=== PATIENT | male | born 1990 | race African-American/Black ===

== ENCOUNTER 2017-07-28 19:14 | Emergency (ER) | payer OTHER ==
[2017-07-28 19:30] VITALS: BP 122/76; PULSE 81; RESP 18; TEMP 97.5
[2017-07-28] MEDS ORDERED: PROPARACAINE 0.5% OPHTH DROPS 15 ML BTL BOTH EYES STA (19:57)
--- NOTE | 2017-07-28 20:24 | ED ---
General Adult HPI - General Chief complaint: Eye Problems Stated complaint: Eye Injury Time Seen by Provider: 07/28/17 19:56 Source: patient, RN notes reviewed Mode of arrival: ambulatory Limitations: no limitations - History of Present Illness Initial comments: 27-year-old male presents to the emergency department for a chief complaint of left eye pain. Patient states he was working out in the yard varying a line when the tool came back and found moderate into his eye. He states it will also may have hit his eye. He is not sure when his tetanus was last given. Patient states he has rinsed his eye out twice since then.One time he rinsed it with water and one time he rinsed it with Visine. Patient denies wearing contacts. Patient states his face is covered with moderate after the incident and he believes mother got into his eye. Patient states his eye feels scratched and is sensitive to light. Patient has no pain with movement of the eye. Patient has no ecchymosis around the eye. Patient has no other complaints at this time. - Related Data Home Medications Medication Instructions Recorded Confirmed Ibuprofen [Motrin] 400 mg PO Q6HR PRN 08/05/15 08/05/15 Previous Rx's Medication Instructions Recorded Azithromycin [Zithromax Tri-Dipesh] 500 mg PO DAILY #3 tab 08/05/15 Erythromycin Ophth Oint [Romycin 1 applic LEFT EYE QID 5 Days gm 07/28/17 Ophth Oint] Allergies Allergy/AdvReac Type Severity Reaction Status Date / Time No Known Allergies Allergy Verified 07/28/17 19:29 Review of Systems ROS Statement: Those systems with pertinent positive or pertinent negative responses have been documented in the HPI. ROS Other: All systems not noted in ROS Statement are negative. Past Medical History Past Medical History: No Reported History History of Any Multi-Drug Resistant Organisms: MRSA Date of last positivie culture/infection: 2007/MRSA MDRO Source:: Right hand Past Surgical History: Hernia Repair Past Psychological History: No Psychological Hx Reported Smoking Status: Former smoker Past Alcohol Use History: None Reported Past Drug Use History: None Reported General Exam Limitations: no limitations Head exam: Present: atraumatic, normocephalic, normal inspection Eye exam: Present: PERRL, EOMI, conjunctival injection (Patient's left eye appears erythematous.), other (Patient was numbed in the left eye with proparacaine and fluorescein stain with Wood's lamp was used to visualize corneal abrasions. This demonstrated 0.5cm mild cornea abrasion at 4:00 on the left eye. There is also a small abrasion at 9:00. Lids were flipped and infected for foreign bodies. No foreign bodies were found. No rust rings evident in the eye.). Absent: scleral icterus, periorbital swelling Pupils: Present: normal accommodation Course Vital Signs 07/28/17 19:26 Temperature 97.5 F L Pulse Rate 81 Respiratory 18 Rate Blood Pressure 122/76 O2 Sat by Pulse 96 Oximetry Medical Decision Making - Medical Decision Making 27-year-old male presents the emergency department for chief complaint of left eye pain. Patient was working outside when his tool flung up and threw dirt in his eye. Patient states the tool may have also hit eye but he cannot be sure. Patient has no pain with movement of the eye. Patient states his eye feels scratched and is sensitive to light. Patient has no other visual changes. Patient was given a tetanus here in the emergency department. patient was numbed with proparacaine and fluorescein dye with Wood's lamp was used. Corneal abrasion at 4:00 and 9:00. No foreign bodies in the eye after inspection. Disposition Clinical Impression: Corneal abrasion, left Disposition: HOME SELF-CARE Condition: Good Instructions: Abrasion (ED) Additional Instructions: Please use erythromycin drops as directed. Please return to the emergency department if you have worsening symptoms or visual loss. Please follow-up with ophthalmology or primary care provider in one to 2 days. Prescriptions: Erythromycin Ophth Oint [Romycin Ophth Oint] 1 applic LEFT EYE QID 5 Days gm Referrals: None,Stated [Primary Care Provider] - 1-2 days Mike Gabriel MD [STAFF PHYSICIAN] - 1-2 days
[2017-07-28] MEDS ORDERED: DIPH,PERTUS(ACELL)TETVAC-LF 0.5 ML VIAL IM ONE (20:38)
== END 2017-07-28 21:03 | disposition home or self-care (01) ==
LOC: EC 19:14
DX: S05.02XA Injury of conjunctiva and corneal abrasion without foreign body, left eye, initial encounter (principal); Z86.14 Personal history of Methicillin resistant Staphylococcus aureus infection; Z87.891 Personal history of nicotine dependence; Z23 Encounter for immunization; W22.8XXA Striking against or struck by other objects, initial encounter
CPT/HCPCS: 90471; 90715; 99282

== ENCOUNTER 2018-11-15 13:46 | Emergency (ER) | payer OTHER ==
[2018-11-15 13:53] VITALS: BP 119/67; PULSE 78; RESP 18; TEMP 99.2
[2018-11-15] MEDS ORDERED: IBUPROFEN 600 MG TAB PO STA (14:34)
--- NOTE | 2018-11-15 14:34 | XR ---
EXAMINATION TYPE: XR ankle complete RT, XR foot complete RT DATE OF EXAM: 11/15/2018 CLINICAL HISTORY: Pain after fall injury. TECHNIQUE: Frontal, lateral and oblique images of the right ankle and foot are obtained. COMPARISON: None. FINDINGS: There is no acute fracture/dislocation evident in the right ankle. The ankle mortise appe ars within normal limits. The overlying soft tissue appears unremarkable. There is no acute fracture or dislocation evident in the right foot. Hallux valgus positioning first metatarsophalangeal joint. Flexion in the distal second through fifth toes is present. Overlying soft tissue is unremarkable. IMPRESSION: There is no acute fracture or dislocation in the right ankle or foot.
--- NOTE | 2018-11-15 14:55 | ED ---
General Adult HPI - General Chief complaint: Extremity Injury, Lower Stated complaint: Foot injury Time Seen by Provider: 11/15/18 14:14 Source: patient Mode of arrival: ambulatory Limitations: no limitations - History of Present Illness Initial comments: Patient is a 28-year-old male presents emergency Department with right foot pain. Patient reports he jumped over a fence and landed abruptly on his right foot causing him to roll. Patient reports that incident occurred 2 hours ago. Patient reports the pain is a 7 and throbbing. Patient reports the pain is exacerbated on palpation along the fifth metatarsal and mild midfoot pain. Patient also reports pain with plantar flexion but no dorsiflexion. Patient reports mild edema at the site of injury but no erythema or skin discoloration. Patient denies taking medication to alleviate the symptoms. Patient denies any numbness or tingling. - Related Data Home Medications Medication Instructions Recorded Confirmed No Known Home Medications 11/15/18 11/15/18 Allergies Allergy/AdvReac Type Severity Reaction Status Date / Time No Known Allergies Allergy Verified 11/15/18 13:53 Review of Systems ROS Statement: Those systems with pertinent positive or pertinent negative responses have been documented in the HPI. ROS Other: All systems not noted in ROS Statement are negative. Past Medical History Past Medical History: No Reported History History of Any Multi-Drug Resistant Organisms: MRSA Date of last positivie culture/infection: 2007/MRSA MDRO Source:: Right hand Past Surgical History: Hernia Repair Past Psychological History: No Psychological Hx Reported Smoking Status: Former smoker Past Alcohol Use History: None Reported Past Drug Use History: None Reported General Exam - General Exam Comments Initial Comments: General: Well-developed well-nourished distress HEENT: Normocephalic/atraumatic, PERLL, pharynx erythema, swallowing well, EAC no erythema, no exudates, TM clear, no cervical lymph nodes Neck: Supple, nontender, trachea midline Chest/Lungs: Normal respirations, no signs of respiratory distress clear to auscultation bilaterally no wheezes, rales, rhonchi Cardiac: Regular rate and rhythm, normal S1-S2, no murmurs rubs or gallops Abdomen/GI: Soft nontender, bowel sounds equal or quadrant x4, no guarding, no rebound no CVA tenderness Musculoskeletal: Tenderness with palpation along the right fifth metatarsal, mild midfoot tenderness, mild edema around the fifth metatarsal, +2 dorsalis pedis and posterior tibialis bilaterally. Skin: Warmth, no rashes or lesions, no cyanosis or diaphoresis Neurologic: AAO x 3, CN 2-12 intact, Psychiatric: Mood and affect normal, judgment normal Limitations: no limitations Course Vital Signs 11/15/18 13:50 Temperature 99.2 F Pulse Rate 78 Respiratory 18 Rate Blood Pressure 119/67 O2 Sat by Pulse 99 Oximetry Procedures - Orthopedic Splinting/Casting Injury #1 Side: right Lower Extremity Injury Location: foot Lower Extremity Immobilizer: Javier wrap Medical Decision Making - Medical Decision Making Patient is a 28-year-old male presents emergency Department with right foot pain. Patient was given ibuprofen for symptomatically relief. X-ray of the right foot and ankle is unremarkable. Javier wrap was applied in the right foot. Patient advised to alternate between Tylenol and ibuprofen for pain control. Patient advised to keep ice compresses and keep leg elevated to minimize swelling and pain. Patient advised to follow with orthopedics. Strict return parameters were thoroughly discussed the patient was understanding and agreeable. Case discussed with physician. Disposition Clinical Impression: Sprain of foot, right Disposition: HOME SELF-CARE Condition: Stable Instructions (If sedation given, give patient instructions): Foot Sprain (ED) Additional Instructions: Please follow with orthopedics. Alternate between Tylenol and ibuprofen for pain control. Keep leg elevated and apply ice compress to minimize swelling. Please return to emergency department if symptoms worsen. Is patient prescribed a controlled substance at d/c from ED?: No Referrals: None,Stated [Primary Care Provider] - 1-2 days Time of Disposition: 14:55
== END 2018-11-15 15:08 | disposition home or self-care (01) ==
LOC: EC 13:46
DX: S93.601A Unspecified sprain of right foot, initial encounter (principal); Z87.891 Personal history of nicotine dependence; X50.1XXA Overexertion from prolonged static or awkward postures, initial encounter; Y93.39 Activity, other involving climbing, rappelling and jumping off
CPT/HCPCS: 99283

== ENCOUNTER 2020-10-18 06:24 | Emergency (ER) | payer OTHER ==
[2020-10-18 06:29] VITALS: BP 132/80; PULSE 60; RESP 16; TEMP 97.9
[2020-10-18] MEDS ORDERED: LIDOCAINE (PF) 10 MG/ML 2 ML VIAL SQ STA (06:44)
[2020-10-18] MEDS ORDERED: BACITRACIN OINT 1 EACH PACKET TOPICAL ONE (07:10)
--- NOTE | 2020-10-18 07:17 | ED ---
Upper Extremity HPI - General Chief Complaint: Extremity Injury, Upper Stated Complaint: Fish Hook in Finger Time Seen by Provider: 10/18/20 06:34 Source: patient Mode of arrival: ambulatory Limitations: no limitations - History of Present Illness Initial Comments: 30-year-old male presents with fishhook to the right second digit that occurred just prior to arrival. Patient states he was unable to get the maurilio out. Patient thinks his tetanus is up-to-date. Patient denies any numbness or tingling but does have some discomfort where the needle is. Note trouble with movement of the finger. -: minutes(s) (30) Other Extremity Injury: Fingers: Right (2nd) Handedness: right Place: outdoors Improves With: immobilization Worsens With: movement of extremity Context: other (fish hook) - Related Data Previous Rx's Medication Instructions Recorded Cephalexin [Keflex] 500 mg PO Q8HR #30 cap 10/18/20 Allergies Allergy/AdvReac Type Severity Reaction Status Date / Time No Known Allergies Allergy Verified 10/18/20 06:25 Review of Systems ROS Statement: Those systems with pertinent positive or pertinent negative responses have been documented in the HPI. ROS Other: All systems not noted in ROS Statement are negative. Constitutional: Denies: fever, chills Skin: Reports: other (right 2nd fish hook) Neurological: Denies: numbness, paresthesias Past Medical History Past Medical History: No Reported History History of Any Multi-Drug Resistant Organisms: MRSA Date of last positivie culture/infection: 2007/MRSA MDRO Source:: Right hand Past Surgical History: Hernia Repair Past Psychological History: No Psychological Hx Reported Smoking Status: Never smoker Past Alcohol Use History: None Reported Past Drug Use History: None Reported General Exam Limitations: no limitations General appearance: alert Respiratory exam: Present: normal lung sounds bilaterally. Absent: respiratory distress, wheezes, rales, rhonchi, stridor Cardiovascular Exam: Present: regular rate, normal rhythm, normal heart sounds. Absent: systolic murmur, diastolic murmur, rubs, gallop, clicks Skin exam: Present: warm, dry, normal color. Absent: intact (fish hook, right 2nd , puncture wound), rash Course Vital Signs 10/18/20 06:26 Temperature 97.9 F Pulse Rate 60 Respiratory 16 Rate Blood Pressure 132/80 O2 Sat by Pulse 99 Oximetry Procedures - Forgein Body Removal Soft Tissue Consent Obtained: verbal consent Site: hand Anesthetic Used: lidocaine 1% Amount (mLs): 1 Foreign Body Suspected: Fish Hook Foreign Body Removed: yes Foreign Body Removal Technique: Other (Patient was prepped and draped appropriately Betadine was used to clean the area before 1 mL of 1% lidocaine was used. pushed maurilio throught other side and clipped, bacitracin and dressing. no complications, pt aurora it well) Patient Tolerated Procedure: well, no complications Medical Decision Making - Medical Decision Making Patient tolerated procedure well we'll cover with antibiotics. Patient believes his tetanus is up-to-date. Disposition Clinical Impression: Fish hook injury of finger Disposition: HOME SELF-CARE Condition: Good Instructions (If sedation given, give patient instructions): Soft Tissue Foreign Body (ED) Prescriptions: Cephalexin [Keflex] 500 mg PO Q8HR #30 cap Is patient prescribed a controlled substance at d/c from ED?: No When asked, does pt state using other controlled substances?: No Referrals: Austyn Mckeon MD [Primary Care Provider] - 1-2 days Time of Disposition: 07:17
[2020-10-18] MEDS ORDERED: TETANUS-DIPHTHERIA TOX (PF) 0.5 ML VIAL IM ONE (07:31)
[2020-10-18] MEDS ORDERED: DIPH,PERTUS(ACELL)TETVAC-LF 0.5 ML VIAL IM ONE (07:38)
== END 2020-10-18 07:44 | disposition home or self-care (01) ==
LOC: EC 06:24
DX: S60.450A Superficial foreign body of right index finger, initial encounter (principal); Z23 Encounter for immunization; W45.8XXA Other foreign body or object entering through skin, initial encounter
CPT/HCPCS: 90715; 90471; 99283; J2001

== ENCOUNTER 2020-11-10 08:43 | Emergency (ER) | payer OTHER ==
[2020-11-10 08:48] VITALS: BP 133/84; PULSE 74; RESP 18; TEMP 98.4
--- NOTE | 2020-11-10 09:24 | XR ---
EXAMINATION TYPE: XR chest 2V DATE OF EXAM: 11/10/2020 COMPARISON: NONE HISTORY: Cough and fever TECHNIQUE: Frontal and lateral views of the chest are obtained. FINDINGS: There is no focal air space opacity, pleural effusion, or pneumothorax seen. The cardiac silhouette size is within normal limits. The osseous structures are intact. IMPRESSION: No acute cardiopulmonary process.
--- NOTE | 2020-11-10 09:35 | ED ---
URI HPI - General Chief Complaint: Upper Respiratory Infection Stated Complaint: fever, vomiting Time Seen by Provider: 11/10/20 08:50 Source: patient Mode of arrival: ambulatory Limitations: no limitations - History of Present Illness Initial Comments: Patient is a 30-year-old male presenting to emergency Department with complaints of intermittent fevers over the past 4 days. He also been having cough, some mild shortness of breath when he starts coughing a lot. He states he been taking Tylenol for the fevers which does break. He has had the fall Covid vaccine over 3 months ago. He denies history of asthma, no COPD. Takes no medications. He denies any chest pains, no abdominal pain, no vomiting or diarrhea.. Does have some generalized bodyaches that have been intermittent as well. He states his appetite has been lower in the past few days, but very to intermittent nausea. He denies any abdominal surgeries in the past. He denies dysuria. He has no further complaints. - Related Data Previous Rx's Medication Instructions Recorded Cephalexin [Keflex] 500 mg PO Q8HR #30 cap 10/18/20 Albuterol Inhaler [Ventolin Hfa 1 puff INHALATION RT-QID PRN #1 11/10/20 Inhaler] puff Azithromycin [Zithromax Z-pack (6 0 mg PO DIRECTED #1 pack 11/10/20 tabs)] Allergies Allergy/AdvReac Type Severity Reaction Status Date / Time No Known Allergies Allergy Verified 11/10/20 08:48 Review of Systems ROS Statement: Those systems with pertinent positive or pertinent negative responses have been documented in the HPI. ROS Other: All systems not noted in ROS Statement are negative. Past Medical History Past Medical History: No Reported History History of Any Multi-Drug Resistant Organisms: MRSA Date of last positivie culture/infection: 2007/MRSA MDRO Source:: Right hand Past Surgical History: Hernia Repair Past Psychological History: No Psychological Hx Reported Smoking Status: Never smoker Past Alcohol Use History: None Reported Past Drug Use History: Marijuana General Exam - General Exam Comments Initial Comments: GENERAL: Patient is well-developed and well-nourished. Patient is nontoxic and in no acute distress. HEAD: Atraumatic, normocephalic. EYES: Pupils equal round and reactive to light, extraocular movements intact, sclera anicteric, conjunctiva are normal. Eyelids were unremarkable. ENT: TMs normal, nares patent, oropharynx clear without exudates. Moist mucous membranes. NECK: Normal range of motion, supple without lymphadenopathy or JVD. LUNGS: Unlabored respirations. Breath sounds clear to auscultation bilaterally and equal. No wheezes rales or rhonchi. HEART: Regular rate and rhythm without murmurs, rubs or gallops. ABDOMEN: Soft, nontender, normoactive bowel sounds. No guarding, no rebound. No masses appreciated. : Deferred MUSCULOSKELETAL: Normal extremities with adequate strength and normal range of motion, no pitting or edema. No clubbing or cyanosis. NEUROLOGICAL: Patient is alert and oriented x 3. SKIN: Warm, Dry, normal turgor, no rashes or lesions noted. Limitations: no limitations Course Vital Signs 11/10/20 08:46 Temperature 98.4 F Pulse Rate 74 Respiratory 18 Rate Blood Pressure 133/84 O2 Sat by Pulse 100 Oximetry Medical Decision Making - Medical Decision Making Patient is a 30-year-old male here with intermittent fevers over the past 4 days as well as a cough, mild nausea, body aches. His vital signs are stable here, no fever. He has not taken any Tylenol or Motrin yet today. Exam is unremarkable, no acute findings. Chest x-ray is clear for any pneumonia. Covid is negative. I discussed with patient this could be developing and it pneumonia given his fever or something viral. Patient will be given azithromycin and inhaler for his symptoms. He can follow up with his PCP. Return parameters were discussed with the patient and he verbalized understanding. He is agreeable to this plan of care. Case discussed with Dr. Nolan. - Lab Data Lab Results 11/10/20 Range/Units 09:13 Coronavirus (PCR) Not Detected (Not Detectd) Disposition Clinical Impression: Upper respiratory tract infection Disposition: HOME SELF-CARE Condition: Stable Instructions (If sedation given, give patient instructions): Upper Respiratory Infection (ED) Additional Instructions: Please return to the Emergency Department if symptoms worsen or any other concerns. Take antibiotics as prescribed, use inhaler as needed for cough or shortness of breath. Follow-up with your primary care physician. Prescriptions: Albuterol Inhaler [Ventolin Hfa Inhaler] 1 puff INHALATION RT-QID PRN #1 puff PRN Reason: Cough Azithromycin [Zithromax Z-pack (6 tabs)] 0 mg PO DIRECTED #1 pack Is patient prescribed a controlled substance at d/c from ED?: No Referrals: None,Stated [Primary Care Provider] - 1-2 days Time of Disposition: 09:55
== END 2020-11-10 10:22 | disposition home or self-care (01) ==
LOC: EC 08:43
DX: J06.9 Acute upper respiratory infection, unspecified (principal); Z20.822 Contact with and (suspected) exposure to COVID-19
CPT/HCPCS: 71046; 87635; 99285